=== PATIENT | male | born 1985 ===

== ENCOUNTER 2024-01-28 14:02 | Emergency (ER) | payer OTHER ==
[~2024-01-28] VITALS: Ht 180.3 cm; Wt 118.2 kg
[2024-01-28 14:21] LABS: COVID AG,FIA SOURCE NASAL SWAB
[2024-01-28 14:43] LABS: INFLUENZA TYPE B NEGATIVE FOR TYPE B (NEGATIVE); RESPIRATORY SYNCYTIAL VIRS,FIA NEGATIVE (Negative); SARS-COV2 (COVID) ANTIGEN,FIA Negative (Negative)
[2024-01-28 15:24] LABS: INFLUENZA TYPE A POSITIVE FOR TYPE A (NEGATIVE)
[2024-01-28] MEDS ORDERED: 0.9% SODIUM CHLORIDE 10 ML SYRINGE IVP PRN (15:30)
[2024-01-28] MEDS: ACETAMINOPHEN 1000 MG/ISO-OSM 100 ML IV ONE (16:06)
[2024-01-28] MEDS: SODIUM CHLORIDE 0.9% 3,550 ML IV ONE (16:06)
[2024-01-28 16:09] LABS: BASOPHILS % (AUTO) 0.1 % (0.0-2.0); EOSINOPHILS % (AUTO) 0.8 % (1.0-6.0); HEMATOCRIT 44.8 % (41-53); HEMOGLOBIN 14.9 g/dL (13.5-17.5); LYMPHOCYTES # (AUTO) 0.6 K/uL (1.0-4.8); LYMPHOCYTES % (AUTO) 8.4 % (22.0-44.0); MEAN CORPUSCULAR HEMOGLOBIN 30.2 pg (26.0-34.0); MEAN CORPUSCULAR HGB CONC 33.2 G/dL (31.0-37.0); MEAN CORPUSCULAR VOLUME 91 fL (80-100); MONOCYTES # (AUTO) 0.9 K/uL (0.1-1.0); NEUTROPHILS # (AUTO) 5.6 K/uL (1.8-7.7); NEUTROPHILS % (AUTO) 77.7 % (40.0-70.0); PLATELET COUNT (AUTO) 244 K/uL (150-450); RED BLOOD CELL COUNT(AUTO) 4.93 MIL/uL (4.50-5.90); RED CELL DISTRIBUTION WIDTH 13.9 % (11.5-14.5); WHITE BLOOD COUNT (AUTO) 7.2 K/uL (4.5-11.0)
[2024-01-28 16:18] LABS: ANION GAP 10 mmol/L (8-16); CALCIUM, TOTAL 8.8 mg/dL (8.8-10.5); CARBON DIOXIDE 28 mmol/L (22-29); CHLORIDE 95 mmol/L (98-107); CREATININE 1.04 mg/dL (0.60-1.30); GLOMERULAR FILTR. RATE CALC > 60 mL/min (>60); GLUCOSE,RANDOM 87 mg/dL (70-110); POTASSIUM 3.8 mmol/L (3.5-5.1); SODIUM SERUM 133 mmol/L (136-145); UREA NITROGEN, BLOOD 11 mg/dL (7-18)
[2024-01-28 16:24] LABS: ALANINE AMINOTRANSFERASE 93 U/L (12-78); ALBUMIN 3.6 g/dL (3.4-5.0); ALKALINE PHOSPHATASE 84 U/L (46-116); ASPARTATE AMINOTRANSFERASE 49 U/L (15-37); BILIRUBIN,TOTAL 0.5 mg/dL (0.1-1.0); TOTAL PROTEIN, SERUM 8.6 g/dL (6.4-8.2)
[2024-01-28 16:26] LABS: LACTIC ACID 0.8 mmol/L (0.4-2.0)
[2024-01-28 18:14] VITALS: TEMP 99.4
[2024-01-28] MEDS: OSELTAMIVIR PHOSPHATE 75 MG CAPSULE PO ONE (18:56)
[2024-01-28] MEDS ORDERED: OSEL75CA45 PO (19:37)
[2024-01-28 20:04] VITALS: BP 114/72; PULSE 90; RESP 20
== END 2024-01-28 20:10 | disposition home or self-care (01) ==
LOC: EMS 14:02
DX: J11.1 Influenza due to unidentified influenza virus with other respiratory manifestations (principal); Z20.822 Contact with and (suspected) exposure to COVID-19
CPT/HCPCS: 99285; 96365; 71045; 87426; 80053; 83605; 87420; 85025; 85610; 87040; 87804; 36415; J7030; J0131